=== PATIENT | female | born 1950 | race Caucasian/White ===

== ENCOUNTER → 2022-07-15 | Outpatient (CLI) | payer MEDICARE, MEDICAID | END | disposition home or self-care (01) | LOC: MAMMO 01:53 | PROVIDERS: ATTEND Internal Medicine | DX: Z12.31 Encounter for screening mammogram for malignant neoplasm of breast (principal); M85.851 Other specified disorders of bone density and structure, right thigh; E11.65 Type 2 diabetes mellitus with hyperglycemia; E78.00 Pure hypercholesterolemia, unspecified; E87.1 Hypo-osmolality and hyponatremia; E87.6 Hypokalemia; F20.0 Paranoid schizophrenia; F20.89 Other schizophrenia; F33.9 Major depressive disorder, recurrent, unspecified; I10 Essential (primary) hypertension; J45.909 Unspecified asthma, uncomplicated; K80.80 Other cholelithiasis without obstruction ==

== ENCOUNTER 2022-09-18 05:55 | Inpatient (IN) | payer MEDICARE, MEDICAID ==
[~2022-09-18] VITALS: Ht 167.6 cm; Wt 82.8 kg
[2022-09-18 06:01] VITALS: BP 124/92
[2022-09-18] MEDS ORDERED: BONIVA150 MG PO ×2 (06:10→16:15)
[2022-09-18] MEDS ORDERED: ATORVASTATIN CA20 M1 PO (06:10)
[2022-09-18] MEDS ORDERED: DICYCLOMINE HYD10 MG PO (06:11)
[2022-09-18] MEDS ORDERED: LATU60TA PO (06:13)
[2022-09-18] MEDS ORDERED: OMEPRAZOLE40 MG PO (06:14)
[2022-09-18] MEDS ORDERED: CLARITIN10 MG PO (06:14)
[2022-09-18] MEDS ORDERED: METFORMIN XR500 MG PO (06:14)
[2022-09-18] MEDS ORDERED: PAXIL40 M1 PO (06:15)
[2022-09-18] MEDS ORDERED: Oscal,Oyster S500 MG PO (06:15)
[2022-09-18] MEDS ORDERED: TRAZODONE100 MG PO (06:17)
[2022-09-18] MEDS ORDERED: VALSARTAN160 MG PO (06:17)
[2022-09-18] MEDS ORDERED: ZANAFLEX4 M2 PO (06:18)
[2022-09-18] MEDS ORDERED: HYDROCODONE-AC1 EAC1 PO (06:19)
[2022-09-18 06:34] LABS: HEMATOCRIT 34.1 % (37.0-47.0); MEAN CELL VOLUME 78.9 fl (81.0-99.0); MEAN CORPUSCULAR HGB 25.2 pg (27.0-31.0); MEAN PLATELET VOLUME 8.3 fl (9.6-12.3); PLATELET COUNT AUTOMATED 587 10*3/uL (130-400); RED BLOOD COUNT 4.32 10*6/uL (4.10-5.10); RED CELL DISTRI WIDTH 16.2 % (0-14.5); WHITE BLOOD COUNT 16.4 10*3/uL (4.8-10.8)
[2022-09-18 06:41] LABS: MANUAL DIFF REFLEX YES
[2022-09-18 06:51] LABS: ALKALINE PHOSPHATASE 124 U/L (46-116); BUN 14 mg/dl (9-23); CHLORIDE 88 mmol/L (98-107); SGPT/ALT 30 U/L (10-49); TOTAL PROTEIN 7.5 gm/dL (6.0-8.0)
[2022-09-18 06:59] LABS: OVALOCYTES FEW; TOTAL CELLS COUNTED 100 #CELLS
[2022-09-18 07:00] LABS: BURR CELLS FEW; MICROCYTOSIS SLIGHT; PLATELET SUFFICIENCY HIGH (NORMAL); POLYCHROMASIA SLIGHT; ROULEAUX SLIGHT; TOXIC GRANULATION SLIGHT
[2022-09-18 08:56] VITALS: BP 123/53
[2022-09-18 11:00] VITALS: BP 132/92
[2022-09-18 13:08] LABS: BILIRUBIN Negative (Negative); BLOOD Trace-Lysed (Negative); CLARITY Cloudy (Clear); COLOR Yellow (Yellow); GLUCOSE Negative (Negative); KETONE Negative (Negative); LEUKO ESTERASE 3+ (Negative); NITRITE Negative (Negative); UROBILINOGEN 0.2 E.U./dl (0.0-1.0)
[2022-09-18 13:15] LABS: WBC TNTC wbc/hpf (0-5)
[2022-09-18 13:20] LABS: BUN 14 mg/dl (9-23); CHLORIDE 92 mmol/L (98-107); POTASSIUM 4.6 mmol/L (3.4-5.1)
[2022-09-18 16:00] VITALS: BP 156/89
[2022-09-18] MEDS ORDERED: ACETAMINOPHEN500 M4 PO (16:11)
[2022-09-18] MEDS ORDERED: BIOFREEZE118 ML T (16:12)
[2022-09-18] MEDS ORDERED: BISACODYL10 MG R (16:13)
[2022-09-18] MEDS ORDERED: VISTARIL50 MG PO (16:22)
[2022-09-18] MEDS ORDERED: VITAMIN D350 MCG PO (16:26)
[2022-09-18] MEDS ORDERED: ONDANSETRON HYDR4 MG PO (16:27)
[2022-09-18 20:00] VITALS: BP 153/92
[2022-09-18 20:07] LABS: BUN 11 mg/dl (9-23); CHLORIDE 93 mmol/L (98-107)
[2022-09-19] VITALS: BP 140/99
[2022-09-19 05:42] LABS: ALKALINE PHOSPHATASE 107 U/L (46-116); BUN 10 mg/dl (9-23); CHLORIDE 94 mmol/L (98-107); POTASSIUM 4.4 mmol/L (3.4-5.1); SGPT/ALT 25 U/L (10-49); TOTAL PROTEIN 6.4 gm/dL (6.0-8.0)
[2022-09-19 06:30] LABS: BASO % 0.3 % (0.0-1.0); EOS % 0.1 % (1.0-4.0); HEMATOCRIT 31.9 % (37.0-47.0); LYMPH # 0.5 10*3/uL (1.3-4.4); LYMPH % 3.2 % (27.0-41.0); MEAN CELL VOLUME 79.4 fl (81.0-99.0); MEAN CORPUSCULAR HGB 25.1 pg (27.0-31.0); MEAN CORPUSCULAR HGB CONC 31.7 g/dl (33.0-37.0); MEAN PLATELET VOLUME 8.5 fl (9.6-12.3); MONO # 1.2 10*3/uL (0.1-1.0); NEUT # 12.7 10*3/uL (2.3-7.9); NEUT % 87.8 % (47.0-73.0); PLATELET COUNT AUTOMATED 570 10*3/uL (130-400); RED BLOOD COUNT 4.02 10*6/uL (4.10-5.10); RED CELL DISTRI WIDTH 16.2 % (0-14.5); WHITE BLOOD COUNT 14.5 10*3/uL (4.8-10.8)
[2022-09-19 06:32] LABS: ACT PARTIAL THROMBO TIME 34.9 SECONDS (20.0-32.1); INTERNATIONAL NORM RATIO 1.1 (2.0-3.5)
[2022-09-19 08:00] VITALS: BP 119/75
[2022-09-19 12:00] VITALS: BP 128/80
[2022-09-19 15:02] VITALS: BP 120/69
[2022-09-19 20:00] VITALS: BP 140/94
[2022-09-19 20:14] LABS: ABG BASE EXCESS 1.9 mmol/L (-2.0-2.0); ARTERIAL BLOOD GAS PH 7.439 (7.35-7.45); ARTERIAL BLOOD GAS PO2 77.1 (80-90)
[2022-09-19 22:00] VITALS: BP 96/63
[2022-09-20] VITALS (12 sets, daily range): BP systolic 113–160; BP diastolic 54–90
[2022-09-20 05:29] LABS: BUN 17 mg/dl (9-23); CHLORIDE 94 mmol/L (98-107); POTASSIUM 4.7 mmol/L (3.4-5.1)
[2022-09-20 06:22] LABS: HEMATOCRIT 31.5 % (37.0-47.0); MEAN CELL VOLUME 79.1 fl (81.0-99.0); MEAN CORPUSCULAR HGB 25.4 pg (27.0-31.0); MEAN CORPUSCULAR HGB CONC 32.1 g/dl (33.0-37.0); MEAN PLATELET VOLUME 8.7 fl (9.6-12.3); PLATELET COUNT AUTOMATED 586 10*3/uL (130-400); RED BLOOD COUNT 3.98 10*6/uL (4.10-5.10); RED CELL DISTRI WIDTH 16.5 % (0-14.5); WHITE BLOOD COUNT 22.2 10*3/uL (4.8-10.8)
[2022-09-20 06:32] LABS: MANUAL DIFF REFLEX YES
[2022-09-20 06:57] LABS: PLATELET SUFFICIENCY HIGH (NORMAL); TOTAL CELLS COUNTED 100 #CELLS
[2022-09-21] VITALS (12 sets, daily range): BP systolic 94–127; BP diastolic 53–81
[2022-09-21 06:19] LABS: BASO % 0.1 % (0.0-1.0); EOS % 0.2 % (1.0-4.0); HEMATOCRIT 30.4 % (37.0-47.0); LYMPH % 6.3 % (27.0-41.0); MEAN CELL VOLUME 77.6 fl (81.0-99.0); MEAN CORPUSCULAR HGB CONC 32.2 g/dl (33.0-37.0); MEAN PLATELET VOLUME 8.4 fl (9.6-12.3); MONO # 1.3 10*3/uL (0.1-1.0); MONO % 8.5 % (3.0-9.0); NEUT % 84.3 % (47.0-73.0); PLATELET COUNT AUTOMATED 636 10*3/uL (130-400); RED BLOOD COUNT 3.92 10*6/uL (4.10-5.10); RED CELL DISTRI WIDTH 16.5 % (0-14.5); WHITE BLOOD COUNT 15.5 10*3/uL (4.8-10.8)
[2022-09-21 07:20] LABS: ALKALINE PHOSPHATASE 113 U/L (46-116); BUN 19 mg/dl (9-23); CHLORIDE 92 mmol/L (98-107); LDH 140 U/L (120-246); POTASSIUM 4.2 mmol/L (3.4-5.1); SGPT/ALT 27 U/L (10-49); TOTAL PROTEIN 6.5 gm/dL (6.0-8.0)
[2022-09-21 15:35] LABS: BF LYMPHOCYTES 6 %; BF MACROPHAGES 25 %; BF NEUTROPHILS 69 %
[2022-09-22] VITALS (8 sets, daily range): BP systolic 113–140; BP diastolic 69–88
[2022-09-22 06:52] LABS: BASO # 0.1 10*3/uL (0.0-0.1); BASO % 0.5 % (0.0-1.0); EOS # 0.2 10*3/uL (0.0-0.4); EOS % 1.4 % (1.0-4.0); HEMATOCRIT 32.3 % (37.0-47.0); LYMPH # 0.7 10*3/uL (1.3-4.4); LYMPH % 6.1 % (27.0-41.0); MEAN CELL VOLUME 78.8 fl (81.0-99.0); MEAN CORPUSCULAR HGB 24.6 pg (27.0-31.0); MEAN CORPUSCULAR HGB CONC 31.3 g/dl (33.0-37.0); MONO # 1.1 10*3/uL (0.1-1.0); NEUT % 81.5 % (47.0-73.0); PLATELET COUNT AUTOMATED 606 10*3/uL (130-400); RED CELL DISTRI WIDTH 16.7 % (0-14.5)
[2022-09-22 08:55] LABS: BUN 19 mg/dl (9-23); CHLORIDE 95 mmol/L (98-107); POTASSIUM 4.4 mmol/L (3.4-5.1)
[2022-09-22 11:06] LABS: ACID FAST SPEC PROCESSING Direct Inoculation (.)
[2022-09-23] VITALS: BP 115/69
[2022-09-23 04:00] VITALS: BP 121/68
[2022-09-23 04:36] LABS: BASO # 0.1 10*3/uL (0.0-0.1); BASO % 0.6 % (0.0-1.0); EOS # 0.1 10*3/uL (0.0-0.4); EOS % 1.1 % (1.0-4.0); HEMATOCRIT 32.4 % (37.0-47.0); LYMPH # 0.9 10*3/uL (1.3-4.4); LYMPH % 6.8 % (27.0-41.0); MEAN CELL VOLUME 78.1 fl (81.0-99.0); MEAN CORPUSCULAR HGB 25.1 pg (27.0-31.0); MEAN CORPUSCULAR HGB CONC 32.1 g/dl (33.0-37.0); MONO # 1.2 10*3/uL (0.1-1.0); MONO % 9.5 % (3.0-9.0); NEUT # 10.6 10*3/uL (2.3-7.9); NEUT % 81.2 % (47.0-73.0); PLATELET COUNT AUTOMATED 646 10*3/uL (130-400); RED BLOOD COUNT 4.15 10*6/uL (4.10-5.10); RED CELL DISTRI WIDTH 16.5 % (0-14.5)
[2022-09-23 05:06] LABS: BUN 19 mg/dl (9-23); CHLORIDE 93 mmol/L (98-107); POTASSIUM 4.4 mmol/L (3.4-5.1)
[2022-09-23 08:00] VITALS: BP 136/84
[2022-09-23 12:00] VITALS: BP 129/84
[2022-09-23] MEDS ORDERED: ACCUNEB 0.1.25 MG/1 NEB (14:21)
[2022-09-23] MEDS ORDERED: FUROSEMIDE10 MG/1 M1 IV (14:21)
[2022-09-23] MEDS ORDERED: CEFEPIME1 GM/50 ML IV (14:21)
[2022-09-23 16:00] VITALS: BP 129/73
== END 2022-09-23 18:00 | disposition short-term general hospital (02) | DRG 871 ==
LOC: ED 05:55 → 4E 08:53 → EDHOLD 08:53 → 4E 09:49 → ICCU 09-19 20:14
PROVIDERS: Emergency Medicine; Internal Medicine Critical Care Medicine; Internal Medicine Nephrology; Student in an Organized Health Care Education/Training Program; ADMIT Internal Medicine; ATTEND Internal Medicine
PROC: 0W9B3ZZ Drainage of Left Pleural Cavity, Percutaneous Approach (ICD-10-PCS; 2022-09-21)
PROC: 5A09357 Assistance with Respiratory Ventilation, Less than 24 Consecutive Hours, Continuous Positive Airway Pressure (ICD-10-PCS; principal; 2022-09-22)
PROC: 5A09357 Assistance with Respiratory Ventilation, Less than 24 Consecutive Hours, Continuous Positive Airway Pressure (ICD-10-PCS; 2022-09-23)
DX: A41.9 Sepsis, unspecified organism (principal); J18.9 Pneumonia, unspecified organism; J96.01 Acute respiratory failure with hypoxia; N30.01 Acute cystitis with hematuria; K92.0 Hematemesis; E44.0 Moderate protein-calorie malnutrition; J98.11 Atelectasis; E87.1 Hypo-osmolality and hyponatremia; R65.20 Severe sepsis without septic shock; D50.9 Iron deficiency anemia, unspecified; E11.65 Type 2 diabetes mellitus with hyperglycemia; E78.00 Pure hypercholesterolemia, unspecified; I10 Essential (primary) hypertension; K21.9 Gastro-esophageal reflux disease without esophagitis; D75.839 Thrombocytosis, unspecified; E66.09 Other obesity due to excess calories; G89.29 Other chronic pain; Z88.2 Allergy status to sulfonamides; Z88.1 Allergy status to other antibiotic agents; Z88.8 Allergy status to other drugs, medicaments and biological substances; Z79.1 Long term (current) use of non-steroidal anti-inflammatories (NSAID); Z79.84 Long term (current) use of oral hypoglycemic drugs; Z79.899 Other long term (current) drug therapy; Z68.29 Body mass index [BMI] 29.0-29.9, adult

== ENCOUNTER 2022-10-13 19:24 | Inpatient (IN) | payer MEDICARE, MEDICAID ==
[~2022-10-13] VITALS: Ht 167.6 cm; Wt 79.4 kg
[2022-10-13 19:24] VITALS: BP 154/91
[~2022-10-13 19:24] MED LIST: ACCUNEB 0.1.25 MG/1 NEB; ACETAMINOPHEN500 M4 PO; ATORVASTATIN CA20 M1 PO; BIOFREEZE118 ML T; BISACODYL10 MG R; BONIVA150 MG PO; CEFEPIME1 GM/50 ML IV; CLARITIN10 MG PO; DICYCLOMINE HYD10 MG PO; FUROSEMIDE10 MG/1 M1 IV; HYDROCODONE-AC1 EAC1 PO; LATU60TA PO; METFORMIN XR500 MG PO; OMEPRAZOLE40 MG PO; ONDANSETRON HYDR4 MG PO; Oscal,Oyster S500 MG PO; PAXIL40 M1 PO; TRAZODONE100 MG PO; VALSARTAN160 MG PO; VISTARIL50 MG PO; VITAMIN D350 MCG PO; ZANAFLEX4 M2 PO
[2022-10-13 20:08] LABS: BASO % 1.1 % (0.0-1.0); EOS # 0.1 10*3/uL (0.0-0.4); EOS % 1.7 % (1.0-4.0); HEMATOCRIT 30.7 % (37.0-47.0); LYMPH # 1.2 10*3/uL (1.3-4.4); LYMPH % 33.6 % (27.0-41.0); MEAN CELL VOLUME 82.3 fl (81.0-99.0); MEAN CORPUSCULAR HGB 26.3 pg (27.0-31.0); MEAN CORPUSCULAR HGB CONC 31.9 g/dl (33.0-37.0); MONO # 0.4 10*3/uL (0.1-1.0); MONO % 11.6 % (3.0-9.0); NEUT # 1.8 10*3/uL (2.3-7.9); NEUT % 51.4 % (47.0-73.0); PLATELET COUNT AUTOMATED 472 10*3/uL (130-400); RED BLOOD COUNT 3.73 10*6/uL (4.10-5.10); RED CELL DISTRI WIDTH 19.9 % (0-14.5); WHITE BLOOD COUNT 3.5 10*3/uL (4.8-10.8)
[2022-10-13 20:35] LABS: ALKALINE PHOSPHATASE 124 U/L (46-116); BUN 14 mg/dl (9-23); CHLORIDE 95 mmol/L (98-107); CPK 45 U/L (34-171); POTASSIUM 4.3 mmol/L (3.4-5.1); SGPT/ALT 16 U/L (10-49); TOTAL PROTEIN 7.1 gm/dL (6.0-8.0)
[2022-10-13 21:27] LABS: BILIRUBIN Negative (Negative); BLOOD Negative (Negative); CLARITY Clear (Clear); COLOR Yellow (Yellow); GLUCOSE Negative (Negative); KETONE Negative (Negative); LEUKO ESTERASE Negative (Negative); NITRITE Negative (Negative); UROBILINOGEN 0.2 E.U./dl (0.0-1.0)
[2022-10-13 21:34] LABS: URINE AMPHETAMINES Negative (1000ng/ml); URINE BARBITURATES Negative (200ng/ml); URINE BENZODIAZEPINES Negative (200ng/ml); URINE CANNABINOIDS (THC) Negative (50ng/ml); URINE COCAINE Negative (300ng/ml); URINE METHADONE Negative (300ng/ml); URINE OPIATES Negative (300ng/ml); URINE PHENCYCLIDINE Negative (25ng/ml)
[2022-10-13 21:38] LABS: BACTERIA 1+
[2022-10-14] VITALS (7 sets, daily range): BP systolic 120–181; BP diastolic 62–97
[2022-10-14] MEDS ORDERED: AMOX-CLAV 875-1 EACH PO (00:33)
[2022-10-14] MEDS ORDERED: BONIVA150 MG PO (00:34)
[2022-10-14] MEDS ORDERED: METFORMIN HYDR500 MG PO (00:35)
[2022-10-14] MEDS ORDERED: SODIUM CHLORI1000 M5 PO (00:37)
[2022-10-14] MEDS ORDERED: ZANAFLEX4 MG PO (00:40)
[2022-10-14] MEDS ORDERED: VITAMIN D350 MCG PO (00:41)
[2022-10-14 05:25] LABS: ALKALINE PHOSPHATASE 121 U/L (46-116); BUN 12 mg/dl (9-23); CHLORIDE 97 mmol/L (98-107); CHOLESTEROL 128 mg/dL (<200); LDL CHOLESTEROL 71 mg/dL (9-159); POTASSIUM 3.8 mmol/L (3.4-5.1); SGPT/ALT 12 U/L (10-49); THYROID STIM HORMONE (HS) 1.241 uIU/ml (0.550-4.780); TOTAL PROTEIN 6.8 gm/dL (6.0-8.0); TRIGLYCERIDES 88 mg/dl (<150)
[2022-10-14 06:26] LABS: BASO % 1.2 % (0.0-1.0); EOS % 1.2 % (1.0-4.0); HEMATOCRIT 29.7 % (37.0-47.0); LYMPH # 1.3 10*3/uL (1.3-4.4); LYMPH % 38.2 % (27.0-41.0); MEAN CELL VOLUME 82.3 fl (81.0-99.0); MEAN CORPUSCULAR HGB 25.5 pg (27.0-31.0); MEAN PLATELET VOLUME 8.7 fl (9.6-12.3); MONO # 0.4 10*3/uL (0.1-1.0); MONO % 12.5 % (3.0-9.0); NEUT # 1.6 10*3/uL (2.3-7.9); NEUT % 46.3 % (47.0-73.0); PLATELET COUNT AUTOMATED 460 10*3/uL (130-400); RED BLOOD COUNT 3.61 10*6/uL (4.10-5.10); RED CELL DISTRI WIDTH 19.6 % (0-14.5); WHITE BLOOD COUNT 3.4 10*3/uL (4.8-10.8)
[2022-10-14 07:53] LABS: VITAMIN D, 25-HYDROXY 60.1 ng/mL (30-100)
[2022-10-14] MEDS ORDERED: MIRALAX17 GM PO (13:43)
[2022-10-14] MEDS ORDERED: SENNA8.6 MG PO (13:45)
[2022-10-14] MEDS ORDERED: [UNRECOGNIZED DRUG - OTHER] R (17:20)
[2022-10-14] MEDS ORDERED: MILK OF MA400 MG/5 M PO (17:22)
[2022-10-15] VITALS: BP 154/86
[2022-10-15 06:26] LABS: BASO % 0.6 % (0.0-1.0); EOS # 0.1 10*3/uL (0.0-0.4); EOS % 1.7 % (1.0-4.0); LYMPH # 1.3 10*3/uL (1.3-4.4); LYMPH % 35.9 % (27.0-41.0); MEAN CELL VOLUME 81.7 fl (81.0-99.0); MEAN CORPUSCULAR HGB 25.6 pg (27.0-31.0); MEAN CORPUSCULAR HGB CONC 31.3 g/dl (33.0-37.0); MEAN PLATELET VOLUME 8.6 fl (9.6-12.3); MONO # 0.4 10*3/uL (0.1-1.0); MONO % 12.3 % (3.0-9.0); NEUT # 1.8 10*3/uL (2.3-7.9); NEUT % 49.2 % (47.0-73.0); PLATELET COUNT AUTOMATED 457 10*3/uL (130-400); RED BLOOD COUNT 3.67 10*6/uL (4.10-5.10); RED CELL DISTRI WIDTH 19.6 % (0-14.5); WHITE BLOOD COUNT 3.6 10*3/uL (4.8-10.8)
[2022-10-15 07:20] LABS: BUN 11 mg/dl (9-23); CHLORIDE 98 mmol/L (98-107); POTASSIUM 3.5 mmol/L (3.4-5.1)
[2022-10-15 08:00] VITALS: BP 158/96
[2022-10-15 12:00] VITALS: BP 125/73
== END 2022-10-15 15:47 | DRG 640 ==
LOC: ED 19:24 → 4E 22:40 → EDHOLD 22:40 → 4E 10-14 13:23
PROVIDERS: Family Medicine; Internal Medicine; Physician Assistant; ADMIT Internal Medicine; ATTEND Internal Medicine
DX: E87.1 Hypo-osmolality and hyponatremia (principal); E43 Unspecified severe protein-calorie malnutrition; G93.41 Metabolic encephalopathy; F20.0 Paranoid schizophrenia; F33.1 Major depressive disorder, recurrent, moderate; D75.839 Thrombocytosis, unspecified; D64.9 Anemia, unspecified; R41.0 Disorientation, unspecified; E87.8 Other disorders of electrolyte and fluid balance, not elsewhere classified; E11.65 Type 2 diabetes mellitus with hyperglycemia; E78.00 Pure hypercholesterolemia, unspecified; F41.1 Generalized anxiety disorder; I10 Essential (primary) hypertension; J45.30 Mild persistent asthma, uncomplicated; K21.9 Gastro-esophageal reflux disease without esophagitis; K58.9 Irritable bowel syndrome, unspecified; Z79.2 Long term (current) use of antibiotics; Z79.899 Other long term (current) drug therapy; Z88.2 Allergy status to sulfonamides; Z88.1 Allergy status to other antibiotic agents; Z88.8 Allergy status to other drugs, medicaments and biological substances; Z79.1 Long term (current) use of non-steroidal anti-inflammatories (NSAID); Z68.28 Body mass index [BMI] 28.0-28.9, adult

== ENCOUNTER 2023-05-07 18:45 | Inpatient (IN) | payer OTHER, MEDICAID ==
[~2023-05-07] VITALS: Ht 167.6 cm; Wt 72.6 kg
[~2023-05-07 18:45] MED LIST changes: +ALENDRONATE SOD70 M1 PO; +AMOX-CLAV 875-1 EACH PO; +FIBERCON625 MG PO; +GOOD SENSE ASP325 MG PO; +INVEGA3 MG PO; +LACTINEX 0.2 MG1 TAB PO; +LIPITOR20 MG PO; +LISINOPRIL5 MG PO; +MELATONIN5 M7 PO; +METFORMIN HYDR500 MG PO; +MILK OF MA400 MG/5 M PO; +MIRALAX17 GM PO; +PALIPERIDONE ER3 MG PO; +PALIPERIDONE ER6 MG PO; +PEPCID20 MG PO; +PREMIERPRO RX ME1 GM IV; +REMEDY CALAZIME4 GM T; +REMERON SOLTAB15 MG PO; +REMERON15 M2 PO; +SENNA8.6 MG PO; +SENOKOT8.6 MG PO; +SODIUM CHLORI1000 M5 PO; +TRAZODONE50 MG PO; +VANCOCIN125 M1 PO; +ZANAFLEX4 MG PO; +[UNRECOGNIZED DRUG - OTHER] R
[2023-05-07 18:54] VITALS: BP 101/79
[2023-05-07 19:35] LABS: BASO # 0.1 10*3/uL (0.0-0.1); BASO % 0.9 % (0.0-1.0); EOS # 0.1 10*3/uL (0.0-0.4); EOS % 0.9 % (1.0-4.0); HEMATOCRIT 28.2 % (37.0-47.0); LYMPH # 1.1 10*3/uL (1.3-4.4); LYMPH % 16.5 % (27.0-41.0); MEAN CELL VOLUME 84.4 fl (81.0-99.0); MEAN CORPUSCULAR HGB 26.6 pg (27.0-31.0); MEAN CORPUSCULAR HGB CONC 31.6 g/dl (33.0-37.0); MEAN PLATELET VOLUME 8.7 fl (9.6-12.3); MONO # 0.8 10*3/uL (0.1-1.0); MONO % 12.6 % (3.0-9.0); NEUT # 4.5 10*3/uL (2.3-7.9); NEUT % 68.8 % (47.0-73.0); PLATELET COUNT AUTOMATED 490 10*3/uL (130-400); RED BLOOD COUNT 3.34 10*6/uL (4.10-5.10); RED CELL DISTRI WIDTH 20.5 % (0-14.5); WHITE BLOOD COUNT 6.6 10*3/uL (4.8-10.8)
[2023-05-07 19:55] LABS: ALKALINE PHOSPHATASE 74 U/L (46-116); BUN 25 mg/dl (9-23); CHLORIDE 108 mmol/L (98-107); SGPT/ALT 33 U/L (10-49); TOTAL PROTEIN 5.8 gm/dL (6.0-8.0)
[2023-05-07 20:05] LABS: BILIRUBIN Negative (Negative); BLOOD Negative (Negative); CLARITY Turbid (Clear); COLOR Yellow (Yellow); GLUCOSE Negative (Negative); KETONE Negative (Negative); LEUKO ESTERASE Trace (Negative); NITRITE Negative (Negative); SPECIFIC GRAVITY 1.025 (1.001-1.030)
[2023-05-07 20:09] VITALS: BP 109/78
[2023-05-07 20:22] LABS: BACTERIA 2+; WBC 16-20 wbc/hpf (0-5)
[2023-05-08 02:30] VITALS: BP 108/67
[2023-05-08] MEDS ORDERED: ONE DAILY COMP1 EACH PO (03:52)
[2023-05-08 06:21] LABS: ALKALINE PHOSPHATASE 65 U/L (46-116); BUN 23 mg/dl (9-23); CHLORIDE 111 mmol/L (98-107); POTASSIUM 4.1 mmol/L (3.4-5.1); SGPT/ALT 25 U/L (10-49); TOTAL PROTEIN 5.1 gm/dL (6.0-8.0)
[2023-05-08 06:42] LABS: BASO # 0.1 10*3/uL (0.0-0.1); EOS # 0.1 10*3/uL (0.0-0.4); EOS % 1.3 % (1.0-4.0); LYMPH # 0.9 10*3/uL (1.3-4.4); LYMPH % 15.4 % (27.0-41.0); MEAN CELL VOLUME 87.2 fl (81.0-99.0); MEAN CORPUSCULAR HGB 25.8 pg (27.0-31.0); MEAN CORPUSCULAR HGB CONC 29.6 g/dl (33.0-37.0); MONO # 0.9 10*3/uL (0.1-1.0); MONO % 14.9 % (3.0-9.0); NEUT # 4.1 10*3/uL (2.3-7.9); NEUT % 67.1 % (47.0-73.0); PLATELET COUNT AUTOMATED 451 10*3/uL (130-400); RED BLOOD COUNT 2.98 10*6/uL (4.10-5.10); RED CELL DISTRI WIDTH 20.3 % (0-14.5); WHITE BLOOD COUNT 6.1 10*3/uL (4.8-10.8)
[2023-05-08 08:00] VITALS: BP 126/72
[2023-05-08 12:00] VITALS: BP 125/77
[2023-05-08 16:00] VITALS: BP 131/79
[2023-05-08 20:00] VITALS: BP 134/78
[2023-05-09] VITALS: BP 144/79
[2023-05-09 07:15] LABS: BASO # 0.1 10*3/uL (0.0-0.1); BASO % 1.1 % (0.0-1.0); EOS # 0.2 10*3/uL (0.0-0.4); EOS % 2.9 % (1.0-4.0); HEMATOCRIT 24.3 % (37.0-47.0); LYMPH # 1.1 10*3/uL (1.3-4.4); MEAN CORPUSCULAR HGB 26.6 pg (27.0-31.0); MEAN CORPUSCULAR HGB CONC 31.3 g/dl (33.0-37.0); MEAN PLATELET VOLUME 8.8 fl (9.6-12.3); MONO # 0.7 10*3/uL (0.1-1.0); NEUT # 3.4 10*3/uL (2.3-7.9); NEUT % 62.6 % (47.0-73.0); PLATELET COUNT AUTOMATED 464 10*3/uL (130-400); RED BLOOD COUNT 2.86 10*6/uL (4.10-5.10); WHITE BLOOD COUNT 5.5 10*3/uL (4.8-10.8)
[2023-05-09 07:46] LABS: BUN 16 mg/dl (9-23); CHLORIDE 111 mmol/L (98-107); POTASSIUM 3.4 mmol/L (3.4-5.1)
[2023-05-09 08:00] VITALS: BP 135/68
[2023-05-09 12:00] VITALS: BP 135/68
[2023-05-09 16:00] VITALS: BP 135/77
[2023-05-09 20:00] VITALS: BP 145/94
[2023-05-10] VITALS: BP 148/87
[2023-05-10 06:39] LABS: BASO # 0.1 10*3/uL (0.0-0.1); BASO % 1.1 % (0.0-1.0); EOS # 0.1 10*3/uL (0.0-0.4); EOS % 1.3 % (1.0-4.0); HEMATOCRIT 24.3 % (37.0-47.0); LYMPH # 1.2 10*3/uL (1.3-4.4); LYMPH % 19.3 % (27.0-41.0); MEAN CELL VOLUME 82.1 fl (81.0-99.0); MEAN CORPUSCULAR HGB 26.7 pg (27.0-31.0); MEAN CORPUSCULAR HGB CONC 32.5 g/dl (33.0-37.0); MEAN PLATELET VOLUME 8.8 fl (9.6-12.3); MONO # 0.7 10*3/uL (0.1-1.0); MONO % 10.9 % (3.0-9.0); NEUT # 4.2 10*3/uL (2.3-7.9); NEUT % 66.9 % (47.0-73.0); PLATELET COUNT AUTOMATED 528 10*3/uL (130-400); RED BLOOD COUNT 2.96 10*6/uL (4.10-5.10); RED CELL DISTRI WIDTH 19.5 % (0-14.5); WHITE BLOOD COUNT 6.2 10*3/uL (4.8-10.8)
[2023-05-10 08:00] VITALS: BP 120/72
[2023-05-10 12:00] VITALS: BP 124/78
[2023-05-10 16:00] VITALS: BP 121/80
[2023-05-10 20:00] VITALS: BP 124/80
[2023-05-11] VITALS: BP 132/86
[2023-05-11 06:12] LABS: BASO # 0.1 10*3/uL (0.0-0.1); BASO % 1.3 % (0.0-1.0); EOS # 0.2 10*3/uL (0.0-0.4); EOS % 3.2 % (1.0-4.0); HEMATOCRIT 23.9 % (37.0-47.0); LYMPH # 1.1 10*3/uL (1.3-4.4); LYMPH % 16.7 % (27.0-41.0); MEAN CELL VOLUME 83.6 fl (81.0-99.0); MEAN CORPUSCULAR HGB 26.6 pg (27.0-31.0); MEAN CORPUSCULAR HGB CONC 31.8 g/dl (33.0-37.0); MEAN PLATELET VOLUME 8.7 fl (9.6-12.3); MONO # 0.7 10*3/uL (0.1-1.0); MONO % 10.4 % (3.0-9.0); NEUT # 4.3 10*3/uL (2.3-7.9); NEUT % 67.9 % (47.0-73.0); PLATELET COUNT AUTOMATED 540 10*3/uL (130-400); RED BLOOD COUNT 2.86 10*6/uL (4.10-5.10); RED CELL DISTRI WIDTH 19.3 % (0-14.5); WHITE BLOOD COUNT 6.3 10*3/uL (4.8-10.8)
[2023-05-11 07:54] LABS: BUN 7 mg/dl (9-23); CHLORIDE 104 mmol/L (98-107); POTASSIUM 2.9 mmol/L (3.4-5.1)
[2023-05-11 08:00] VITALS: BP 133/92
[2023-05-11 12:00] VITALS: BP 100/74
[2023-05-11 16:00] VITALS: BP 137/81
[2023-05-11 20:00] VITALS: BP 152/92
[2023-05-12] VITALS: BP 137/83
[2023-05-12 06:57] LABS: BASO # 0.1 10*3/uL (0.0-0.1); BASO % 0.8 % (0.0-1.0); EOS # 0.1 10*3/uL (0.0-0.4); EOS % 1.1 % (1.0-4.0); HEMATOCRIT 23.3 % (37.0-47.0); LYMPH # 0.9 10*3/uL (1.3-4.4); LYMPH % 12.2 % (27.0-41.0); MEAN CELL VOLUME 82.3 fl (81.0-99.0); MEAN CORPUSCULAR HGB 26.5 pg (27.0-31.0); MEAN CORPUSCULAR HGB CONC 32.2 g/dl (33.0-37.0); MEAN PLATELET VOLUME 8.8 fl (9.6-12.3); MONO # 0.7 10*3/uL (0.1-1.0); MONO % 9.8 % (3.0-9.0); NEUT # 5.4 10*3/uL (2.3-7.9); NEUT % 75.7 % (47.0-73.0); PLATELET COUNT AUTOMATED 586 10*3/uL (130-400); RED BLOOD COUNT 2.83 10*6/uL (4.10-5.10); RED CELL DISTRI WIDTH 18.9 % (0-14.5); WHITE BLOOD COUNT 7.1 10*3/uL (4.8-10.8)
[2023-05-12 07:18] LABS: BUN 6 mg/dl (9-23); CHLORIDE 102 mmol/L (98-107); POTASSIUM 3.2 mmol/L (3.4-5.1)
[2023-05-12 08:00] VITALS: BP 142/90
[2023-05-12 12:00] VITALS: BP 141/87
[2023-05-12 16:00] VITALS: BP 145/89
[2023-05-12 20:00] VITALS: BP 127/80
[2023-05-13] VITALS: BP 108/60
[2023-05-13 07:01] LABS: BASO # 0.1 10*3/uL (0.0-0.1); BASO % 1.2 % (0.0-1.0); EOS # 0.2 10*3/uL (0.0-0.4); EOS % 2.9 % (1.0-4.0); HEMATOCRIT 23.4 % (37.0-47.0); LYMPH # 1.4 10*3/uL (1.3-4.4); LYMPH % 21.5 % (27.0-41.0); MEAN CELL VOLUME 82.7 fl (81.0-99.0); MEAN CORPUSCULAR HGB 26.1 pg (27.0-31.0); MEAN CORPUSCULAR HGB CONC 31.6 g/dl (33.0-37.0); MEAN PLATELET VOLUME 8.5 fl (9.6-12.3); MONO # 0.7 10*3/uL (0.1-1.0); MONO % 11.2 % (3.0-9.0); NEUT # 4.1 10*3/uL (2.3-7.9); NEUT % 62.9 % (47.0-73.0); PLATELET COUNT AUTOMATED 560 10*3/uL (130-400); RED BLOOD COUNT 2.83 10*6/uL (4.10-5.10); RED CELL DISTRI WIDTH 19.2 % (0-14.5); WHITE BLOOD COUNT 6.5 10*3/uL (4.8-10.8)
[2023-05-13 07:30] LABS: BUN 8 mg/dl (9-23); CHLORIDE 106 mmol/L (98-107); POTASSIUM 3.2 mmol/L (3.4-5.1)
[2023-05-13 08:00] VITALS: BP 112/80
[2023-05-13 12:00] VITALS: BP 143/71
[2023-05-13 12:45] LABS: ABG BASE EXCESS 2.2 mmol/L (-2.0-2.0); ARTERIAL BLOOD GAS PH 7.549 (7.35-7.45); ARTERIAL BLOOD GAS PO2 90.5 (80-90)
[2023-05-13 16:00] VITALS: BP 120/73
[2023-05-13] MEDS ORDERED: ERTAPENEM1 GM IV (19:05)
[2023-05-14] VITALS: BP 139/89
[2023-05-14 07:14] LABS: BASO # 0.1 10*3/uL (0.0-0.1); BASO % 0.7 % (0.0-1.0); EOS % 0.4 % (1.0-4.0); HEMATOCRIT 24.3 % (37.0-47.0); LYMPH # 0.9 10*3/uL (1.3-4.4); MEAN CELL VOLUME 84.1 fl (81.0-99.0); MEAN CORPUSCULAR HGB 26.3 pg (27.0-31.0); MEAN CORPUSCULAR HGB CONC 31.3 g/dl (33.0-37.0); MEAN PLATELET VOLUME 8.7 fl (9.6-12.3); MONO # 0.7 10*3/uL (0.1-1.0); NEUT # 6.8 10*3/uL (2.3-7.9); NEUT % 80.4 % (47.0-73.0); PLATELET COUNT AUTOMATED 615 10*3/uL (130-400); RED BLOOD COUNT 2.89 10*6/uL (4.10-5.10); RED CELL DISTRI WIDTH 19.2 % (0-14.5); WHITE BLOOD COUNT 8.5 10*3/uL (4.8-10.8)
[2023-05-14 07:35] LABS: BUN 10 mg/dl (9-23); CHLORIDE 104 mmol/L (98-107); POTASSIUM 3.3 mmol/L (3.4-5.1)
[2023-05-14 08:00] VITALS: BP 137/75
[2023-05-14 12:00] VITALS: BP 118/69
[2023-05-14 16:00] VITALS: BP 125/75
== END 2023-05-14 16:45 | DRG 871 ==
LOC: ED 18:45 → 4E 20:45 → EDHOLD 20:45 → 4E 22:43
PROVIDERS: Internal Medicine; Student in an Organized Health Care Education/Training Program; ADMIT Internal Medicine; ATTEND Internal Medicine
PROC: BD15YZZ Fluoroscopy of Upper GI using Other Contrast (ICD-10-PCS; principal; 2023-05-08)
PROC: 05HB33Z Insertion of Infusion Device into Right Basilic Vein, Percutaneous Approach (ICD-10-PCS; 2023-05-14)
PROC: B54MZZA Ultrasonography of Right Upper Extremity Veins, Guidance (ICD-10-PCS; 2023-05-14)
DX: A41.9 Sepsis, unspecified organism (principal); E43 Unspecified severe protein-calorie malnutrition; G93.41 Metabolic encephalopathy; J69.0 Pneumonitis due to inhalation of food and vomit; F20.0 Paranoid schizophrenia; E86.0 Dehydration; Z66 Do not resuscitate; D64.9 Anemia, unspecified; E78.5 Hyperlipidemia, unspecified; F32.A Depression, unspecified; K59.09 Other constipation; F51.04 Psychophysiologic insomnia; F41.1 Generalized anxiety disorder; E11.9 Type 2 diabetes mellitus without complications; K21.9 Gastro-esophageal reflux disease without esophagitis; J45.909 Unspecified asthma, uncomplicated; R65.20 Severe sepsis without septic shock; D75.839 Thrombocytosis, unspecified; F32.9 Major depressive disorder, single episode, unspecified; S30.0XXA Contusion of lower back and pelvis, initial encounter; L89.511 Pressure ulcer of right ankle, stage 1; Z51.5 Encounter for palliative care; Z88.1 Allergy status to other antibiotic agents; Z88.2 Allergy status to sulfonamides; Z88.8 Allergy status to other drugs, medicaments and biological substances; R74.01 Elevation of levels of liver transaminase levels; Z68.25 Body mass index [BMI] 25.0-25.9, adult